=== PATIENT | male | born 1985 | race Caucasian/White ===

== ENCOUNTER 2019-11-23 18:07 | Emergency (ER) | payer SELFPAY ==
[~2019-11-23] VITALS: Ht 190.5 cm; Wt 165.0 kg
[2019-11-23] MEDS: ONDANSETRON PF 4 MG/2 ML VIAL. IM ONE (18:30)
[2019-11-23] MEDS: IV NORMAL SALINE 1000ML BAG 1,000 ML IV ONE ×2 (18:30→18:37)
[2019-11-23] MEDS: ONDANSETRON PF 4 MG/2 ML VIAL. IVP ONE (18:37)
[2019-11-23] MEDS: fentaNYL PF VIAL 100 MCG/2 ML VIAL IVP ONE ×3 (18:37→20:39)
[2019-11-23 18:43] LABS: BASO # 0.1 x10^3/uL (0.0-0.2); BASO % 1 % (0-3); EOS # 0.2 x10^3/uL (0.0-0.7); EOS % 2 % (0-3); HEMATOCRIT 39.1 % (39.0-53.0); HEMOGLOBIN 13.5 g/dL (13.0-17.5); LYMPH # 2.8 x10^3/uL (1.0-4.8); LYMPH % 31 % (24-48); MEAN CORPUSCULAR HEMOGLOBIN 30 pg (25-35); MEAN CORPUSCULAR HGB CONC 35 g/dL (31-37); MEAN CORPUSCULAR VOLUME 86 fL (79-100); MONO # 0.7 x10^3/uL (0.0-1.1); MONO % 7 % (0-9); NEUT # 5.4 x10^3/uL (1.8-7.7); NEUT % 59 % (31-73); PLATELET COUNT 334 x10^3/uL (140-400); RED BLOOD COUNT 4.54 x10^6/uL (4.30-5.70); RED CELL DISTRIBUTION WIDTH 13.2 % (11.5-14.5); WHITE BLOOD COUNT 9.2 x10^3/uL (4.0-11.0)
[2019-11-23 18:50] LABS: CALCIUM 9.3 mg/dL (8.5-10.1); CREATININE 1.1 mg/dL (0.7-1.3); GFR 77.1
[2019-11-23 18:52] LABS: PROTHROMBIN TIME PATIENT 12.7 SEC (11.7-14.0)
--- NOTE | 2019-11-23 19:17 | PHYS DOC ---
Past Medical History Past Medical History: No Pertinent History Adult General Chief Complaint Chief Complaint: FINGER INJURY HPI HPI Patient is a 34 year old right-handed male without history of medical problem who presents with complaint of left middle finger injury with a skill saw. Patient states he cut his left middle fingertip with a skill saw prior to arrival to ER with severe bleeding and put a glove and drove himself here. Patient brought a amputated part of tip of finger and rated his pain 10/10. Patient denies other injuries. Patient is up-to-date with tetanus immunization. Review of Systems Review of Systems Constitutional: Denies fever or chills [] Eyes: Denies change in visual acuity, redness, or eye pain [] HENT: Denies nasal congestion or sore throat [] Respiratory: Denies cough or shortness of breath [] Cardiovascular: No additional information not addressed in HPI [] GI: Denies abdominal pain, nausea, vomiting, bloody stools or diarrhea [] : Denies dysuria or hematuria [] Musculoskeletal: Denies back pain, reports joint pain [] Integument: Denies rash or skin lesions [] Neurologic: Denies headache, focal weakness or sensory changes [] Endocrine: Denies polyuria or polydipsia [] All other systems were reviewed and found to be within normal limits, except as documented in this note. Current Medications Current Medications Current Medications Medications (Trade) Dose Ordered Sig/Harry Start Time Stop Time Status Last Admin Dose Admin Fentanyl Citrate (Fentanyl 2ml Vial) 50 mcg 1X ONCE 11/23/19 18:45 11/23/19 18:46 DC Ondansetron HCl (Zofran) 4 mg 1X ONCE 11/23/19 18:45 11/23/19 18:46 DC 11/23/19 18:37 4 MG Sodium Chloride 1,000 ml @ 1,000 mls/hr 1X ONCE 11/23/19 18:45 11/23/19 19:44 DC 11/23/19 18:37 1,000 MLS/HR Allergies Allergies Allergies Coded Allergies Type Severity Reaction Last Updated Verified Penicillins Allergy Unknown 11/23/19 Yes cefaclor Allergy Unknown 11/23/19 Yes Physical Exam Physical Exam Constitutional: Well developed, well nourished, moderate distress, non-toxic appearance, anxious. [] HENT: Normocephalic, atraumatic. Eyes: PERRLA, EOMI, conjunctiva normal, no discharge. [] Neck: Normal range of motion, no tenderness, supple, no stridor. [] Cardiovascular: Tachycardia, no murmur [] Lungs & Thorax: Bilateral breath sounds clear to auscultation [] Extremities: Left middle finger with amputated medial side of tip of finger acti ve moderate bleeding and large amount of blood clot in the glove with exposed tip of bone, no neurovascular deficit , moderate tenderness. Neurologic: Alert and oriented X 3, no focal deficits noted. [] Psychologic: Affect anxious, judgement normal, mood normal. [] Current Patient Data Vital Signs Vital Signs Date Time Temp Pulse Resp B/P (MAP) Pulse Ox O2 Delivery O2 Flow Rate FiO2 11/23/19 19:08 18 11/23/19 18:42 99 Room Air 11/23/19 18:19 98.2 128 133/84 (100) 98.2 Lab Values Laboratory Tests Test 11/23/19 18:30 White Blood Count 9.2 x10^3/uL (4.0-11.0) Red Blood Count 4.54 x10^6/uL (4.30-5.70) Hemoglobin 13.5 g/dL (13.0-17.5) Hematocrit 39.1 % (39.0-53.0) Mean Corpuscular Volume 86 fL (79-100) Mean Corpuscular Hemoglobin 30 pg (25-35) Mean Corpuscular Hemoglobin Concent 35 g/dL (31-37) Red Cell Distribution Width 13.2 % (11.5-14.5) Platelet Count 334 x10^3/uL (140-400) Neutrophils (%) (Auto) 59 % (31-73) Lymphocytes (%) (Auto) 31 % (24-48) Monocytes (%) (Auto) 7 % (0-9) Eosinophils (%) (Auto) 2 % (0-3) Basophils (%) (Auto) 1 % (0-3) Neutrophils # (Auto) 5.4 x10^3/uL (1.8-7.7) Lymphocytes # (Auto) 2.8 x10^3/uL (1.0-4.8) Monocytes # (Auto) 0.7 x10^3/uL (0.0-1.1) Eosinophils # (Auto) 0.2 x10^3/uL (0.0-0.7) Basophils # (Auto) 0.1 x10^3/uL (0.0-0.2) Prothrombin Time 12.7 SEC (11.7-14.0) Prothrombin Time INR 1.0 (0.8-1.1) Sodium Level 137 mmol/L (136-145) Potassium Level 4.0 mmol/L (3.5-5.1) Chloride Level 101 mmol/L (98-107) Carbon Dioxide Level 22 mmol/L (21-32) Anion Gap 14 (6-14) Blood Urea Nitrogen 11 mg/dL (8-26) Creatinine 1.1 mg/dL (0.7-1.3) Estimated GFR (Cockcroft-Gault) 77.1 Glucose Level 83 mg/dL (70-99) Calcium Level 9.3 mg/dL (8.5-10.1) Laboratory Tests 11/23/19 18:30 Laboratory Tests 11/23/19 18:30 EKG EKG [] Radiology/Procedures Radiology/Procedures [facility] [address] [place] [address] IMAGING REPORT Signed PATIENT: NOAH CHRIS ACCOUNT: [id number] : 1985 LOCATION: ER AGE: 34 SEX: M EXAM STATUS: REG ER ORD. PHYSICIAN: MONET WASHINGTON MD REASON: Finger amputation PROCEDURE: FINGER(S) LEFT EXAM: PA view left hand, oblique and lateral views of the left middle finger DATE: 11/23/2019 6:42 PM INDICATION: Finger amputation, injury COMPARISON: No Prior FINDINGS/ IMPRESSION: Soft tissue contusion overlying the distal phalanx of the right middle finger with mild blunting of the ulnar margin of the tuft from clinically provided history of amputation and possible associated degloving type injury. Electronically signed by: Stalin Clarke MD (11/23/2019 8:01 PM) [id number] DICTATED and SIGNED BY: STALIN CLARKE MD DATE: 11/23/192000 Course & Med Decision Making Course & Med Decision Making Pertinent Labs and Imaging studies reviewed. (See chart for details) Evaluation of patient ER showed 34-year-old right-handed male patient with amputation of tip of left middle finger with exposed bone and active bleeding that stopped with pressure dressing. X-ray showed degloving pattern of distal middle finger. Dr. Sullivan hand surgeon at accepted transfer at 1853. Patient treated with several doses of fentanyl and rated his pain 9/10 even he looked very comfortable and almost falling asleep. Patient plans to go with his with private car to emergency room. Dragon Disclaimer Dragon Disclaimer This electronic medical record was generated, in whole or in part, using a voice recognition dictation system. Departure Departure Impression: Primary Impression: Amputation of finger tip Disposition: 05 TRANSFER OTHER ([facility], Dr. Sullivan hand surgeon accepted transfer at 1853) Condition: IMPROVED Problem Qualifiers Primary Impression: Amputation of finger tip Encounter type: initial encounter Qualified Codes: S68.119A - Complete traumatic metacarpophalangeal amputation of unspecified finger, initial encounter MONET WASHINGTON MD Nov 23, 2019 19:17
--- NOTE | 2019-11-23 20:03 | RAD ---
EXAM: PA view left hand, oblique and lateral views of the left middle finger DATE: 11/23/2019 6:42 PM INDICATION: Finger amputation, injury COMPARISON: No Prior FINDINGS/ IMPRESSION: Soft tissue contusion overlying the distal phalanx of the right middle finger with mild blunting of the ulnar margin of the tuft from clinically provided history of amputation and possible associated degloving type injury. Electronically signed by: Stalin Vásquez MD (11/23/2019 8:01 PM) [id number]
[2019-11-23 20:35] VITALS: BP 137/89
== END 2019-11-23 20:55 | disposition short-term general hospital (02) ==
LOC: ER 18:07
DX: S68.113A Complete traumatic metacarpophalangeal amputation of left middle finger, initial encounter (principal); Z88.1 Allergy status to other antibiotic agents; W27.0XXA Contact with workbench tool, initial encounter; Y93.89 Activity, other specified; Y92.89 Other specified places as the place of occurrence of the external cause; Y99.8 Other external cause status; Z88.0 Allergy status to penicillin
CPT/HCPCS: 36415; 73140; 80048; 85025; 85610; 96374; 96375; 96376; 99285; J2405; J3010; J7030